=== PATIENT | male | born 1975 | race Caucasian/White ===

== ENCOUNTER 2017-10-26 13:12 | Emergency (ER) | payer BC, OTHER, SELFPAY ==
[~2017-10-26] VITALS: Ht 182.9 cm; Wt 104.3 kg
[~2017-10-26 13:12] MED LIST: ANUSOL-HC CREAM30 GM RECTAL; NKM
[2017-10-26] MEDS ORDERED: NKM (13:19)
[2017-10-26 13:33] VITALS: BP 126/81
--- NOTE | 2017-10-26 13:36 | Emergency Room Report ---
History of Present Illness General Chief Complaint: Constipation Source: Patient (BASIL PRICE D.O.) Present Illness HPI Patient presents with complaints of left lower abdominal pain Patient reports that he was at an urgent care and was told that the practitioner had palpated a mass in the colon And sent to the ER for evaluation He himself cannot feel anything when pushing on her stomach patient reports that he's been constipated for about 2 weeks He has recently returned from [place] denies any diarrhea Denies any chest pressures of breath he had some questionable fevers and chills Denies any vomiting (BASIL PRICE D.O.) Allergies: Uncoded Allergies: NKA (Allergy, 03/29/13) Patient History Past Medical History: see triage record Pertinent Family History: none Reviewed Nursing Documentation: PMH: Agreed, PSxH: Agreed (BASIL PRICE D.O.) Nursing Documentation-PMH Past Medical History: No Stated History (BASIL PRICE D.O.) Review of Systems All Other Systems: negative except mentioned in HPI (BASIL PRICE D.O.) Physical Exam Vital Signs Date Time Temp Pulse Resp B/P (MAP) Pulse Ox O2 Delivery O2 Flow Rate FiO2 10/26/17 13:15 97.5 62 18 126/81 99 Room Air Sp02 EP Interpretation: reviewed, normal General Appearance: well appearing, no apparent distress Head: normocephalic, atraumatic Eyes: bilateral eye PERRL, bilateral eye EOMI ENT: hearing grossly normal, normal pharynx, TMs + canals normal, uvula midline Neck: full range of motion, supple, no meningismus, no bony tend Respiratory: lungs clear, normal breath sounds, no rhonchi, no respiratory distress, no retraction, no accessory muscle use Cardiovascular #1: normal peripheral pulses, regular rate, rhythm, no edema, no gallop, no JVD, no murmur Gastrointestinal: normal bowel sounds, non tender, soft, no mass, no organomegaly, non-distended, no guarding, no hernia, no pulsatile mass, no rebound, other - However subjectively points to the left lower abdomen for most of the discomfort Genitourinary: no CVA tenderness Musculoskeletal: normal inspection Neurologic: oriented x3, responsive, 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 nml as tested, motor strength/ tone normal, sensory intact Psychiatric: mood/affect normal Skin: normal color, no rash, warm/dry, palpation normal Lymphatic: normal inspection, no adenopathy (BASIL PRICE D.O.) Medical Decision Making Diagnostic Impression: Primary Impression: Abnormal CT scan, colon Additional Impression: Constipation ER Course With the history exam and presentation, multiple differentials considered, including but not limited to appendicitis, gastritis, cholecystitis, diverticulitis (BASIL PRICE D.O.) ER Course I received signout 42-year-old male, intermittent left lower abdominal pain for 2 weeks Intermittent constipation, however states that he is passing some gas and stool today CAT scan reviewed by radiologist, high suspicion for colon cancer with liver metastases I informed the patient that further workup was begun, such as colonoscopy and biopsies Patient is stable for discharge to home He will follow up with GI doctor Dr. Dee this sunday at 1pm Strict return precautions discussed the patient such as high fever chills, intractable nausea and vomiting, worsening or severe abdominal pain, constipation and no passing of gas He verbalized understanding and agrees with the plan (Perico Andrews M.D.) CT/MRI/US Diagnostic Results CT/MRI/US Diagnostic Results : Imaging Test Ordered: CT abdo pelvis Impression Comparison: None Findings: There is infiltration of the pericolonic fat surrounding the distal descending colon. Numerous diverticula are seen in the area. There is some associated colonic wall thickening as well as prominent pericolonic nodes. There is also some wall thickening of the proximal sigmoid colon. No extraluminal gas demonstrated. No fluid collections demonstrated. The appendix is normal. No small bowel distention. No free or loculated intraperitoneal air or or fluid is evident. Distal esophagus, stomach, duodenum are unremarkable. A few hypoattenuating masses are seen in the liver. The largest is in segment 5 to the right hepatic lobe. This measures 8 cm AP by 5.7 cm transverse by 5.6 cm craniocaudad. Other smaller masses are seen within segment 8 and segment 7. The gallbladder, bile ducts, pancreas are unremarkable. The spleen is mildly enlarged, measuring 13.7 cm long axis dimension. The left adrenal demonstrates an 18 mm diameter mass which demonstrates nonspecific soft tissue attenuation. The right adrenal is unremarkable. The kidneys are unremarkable. Prominent lymph nodes are also seen in the right lower quadrant mesentery. Prominent but not frankly enlarged retroperitoneal nodes are demonstrated. The included lung bases are clear. The bones are unremarkable except for small bone island within the left iliac wing. Impression: Pericolonic inflammatory changes surrounding the distal descending colon. Presence of diverticulosis suggest acute diverticulitis as etiology. However, given the presence of wall thickening, pericolonic lymphadenopathy, and presence of multiple lesions within the liver, favor colonic malignancy as etiology of the findings. Further evaluation with endoscopy is recommended Multiple hepatic lesions, as described. Although possibly inflammatory/infectious, suspect more likely these represent metastatic deposits, particularly given the concomitant colonic abnormality. 18 mm left adrenal mass. Nonspecific. Although likely benign adenoma, possibility of metastatic disease cannot be ruled out. Further evaluation with adrenal protocol MRI or CT may clarify, if necessary Mild splenomegaly Findings discussed by phone with Dr. Andrews in the emergency room at the time of interpretation (Perico Andrews M.D.) Last Vital Signs Date Time Temp Pulse Resp B/P (MAP) Pulse Ox O2 Delivery O2 Flow Rate FiO2 10/26/17 13:15 97.5 62 18 126/81 99 Room Air (BASIL PRICE.Felicity) Disposition: HOME, SELF-CARE Condition: Stable Patient Instructions: Constipation, Adult Additional Instructions: Your CAT scan is highly suspicious for colon cancer with liver metastasis Please followup with delinquency prevention officer Dr Dee at 1pm on Sunday, October 29 2017 [id number] [place] [address] BASIL PRICE D.O. Oct 26, 2017 13:36 Perico Andrews M.D. Oct 26, 2017 15:36
[2017-10-26] MEDS: Ketorolac 30mg Inj IV ONE (13:58)
[2017-10-26 14:04] LABS: APPEARANCE,URINE CLEAR; KETONES,URINE NEGATIVE (NEGATIVE); LEUKOCYTE ESTERASE ,URINE 1+ (NEGATIVE); NITRITE,URINE NEGATIVE (NEGATIVE); PH,URINE 5 (4.5-8.0); PROTEIN,URINE NEGATIVE (NEGATIVE); UROBILINOGEN,URINE NORMAL MG/DL (0.0-1.0)
[2017-10-26 14:05] LABS: BASOPHILS % (AUTO) 0.6 % (0.0-2.0); EOSINOPHILS % (AUTO) 2.7 % (0.0-3.0); LYMPHOCYTES % (AUTO) 28.3 % (20.0-45.0); MEAN CORPUSCULAR HEMOGLOBIN 30.6 PG (27.0-31.0); MEAN CORPUSCULAR HGB CONC 33.4 G/DL (32.0-36.0); MEAN CORPUSCULAR VOLUME 92 FL (80-99); MEAN PLATELET VOLUME 8.2 FL (6.5-10.1); MONOCYTES % (AUTO) 7.3 % (1.0-10.0); NEUTROPHILS % (AUTO) 61.2 % (45.0-75.0); PLATELET COUNT 317 K/UL (150-450); RED BLOOD COUNT 5.14 M/UL (4.70-6.10); RED CELL DISTRIBUTION WIDTH 11.6 % (11.6-14.8); WHITE BLOOD COUNT 12.1 K/UL (4.8-10.8)
[2017-10-26 14:13] LABS: BACTERIA,URINE FEW /HPF; MUCUS,URINE FEW /LPF (NONE/OCC); SQUAMOUS EPITHELIAL CELL,UR FEW /LPF (NONE/OCC); WBC,URINE 0-2 /HPF (0 - 0)
[2017-10-26 14:18] LABS: ANION GAP 5 mmol/L (5-15); CALCIUM 10.1 MG/DL (8.5-10.1); CARBON DIOXIDE 32 MMOL/L (21-32); CHLORIDE 104 MMOL/L (98-107); GLOMERULAR FILTRATION RATE > 60 mL/min (>60); POTASSIUM 4.3 MMOL/L (3.5-5.1); SODIUM 141 MMOL/L (136-145)
[2017-10-26 14:24] LABS: ALANINE AMINOTRANSFERASE 44 U/L (12-78); ALBUMIN/GLOBULIN RATIO 0.8 (1.0-2.7); ASPARTATE AMINO TRANSFERASE 15 U/L (15-37); LIPASE 111 U/L (73-393); TOTAL PROTEIN 8.7 G/DL (6.4-8.2)
--- NOTE | 2017-10-26 15:23 | Diagnostic Imaging Report ---
Clinical Indication: Left lower quadrant abdominal pain Technique: No oral contrast utilized, per emergency room physician request IV administration nonionic contrast. Venous phase and delayed phase spiral acquisitions obtained through the abdomen and pelvis. Multiplanar reconstructions were generated. Total dose length product 1640 mGycm. CTDIvol(s) 1818 mGy. Dose reduction achieved using automated exposure control Comparison: None Findings: There is infiltration of the pericolonic fat surrounding the distal descending colon. Numerous diverticula are seen in the area. There is some associated colonic wall thickening as well as prominent pericolonic nodes. There is also some wall thickening of the proximal sigmoid colon. No extraluminal gas demonstrated. No fluid collections demonstrated. The appendix is normal. No small bowel distention. No free or loculated intraperitoneal air or or fluid is evident. Distal esophagus, stomach, duodenum are unremarkable. A few hypoattenuating masses are seen in the liver. The largest is in segment 5 to the right hepatic lobe. This measures 8 cm AP by 5.7 cm transverse by 5.6 cm craniocaudad. Other smaller masses are seen within segment 8 and segment 7. The gallbladder, bile ducts, pancreas are unremarkable. The spleen is mildly enlarged, measuring 13.7 cm long axis dimension. The left adrenal demonstrates an 18 mm diameter mass which demonstrates nonspecific soft tissue attenuation. The right adrenal is unremarkable. The kidneys are unremarkable. Prominent lymph nodes are also seen in the right lower quadrant mesentery. Prominent but not frankly enlarged retroperitoneal nodes are demonstrated. The included lung bases are clear. The bones are unremarkable except for small bone island within the left iliac wing. Impression: Pericolonic inflammatory changes surrounding the distal descending colon. Presence of diverticulosis suggest acute diverticulitis as etiology. However, given the presence of wall thickening, pericolonic lymphadenopathy, and presence of multiple lesions within the liver, favor colonic malignancy as etiology of the findings. Further evaluation with endoscopy is recommended Multiple hepatic lesions, as described. Although possibly inflammatory/infectious, suspect more likely these represent metastatic deposits, particularly given the concomitant colonic abnormality. 18 mm left adrenal mass. Nonspecific. Although likely benign adenoma, possibility of metastatic disease cannot be ruled out. Further evaluation with adrenal protocol MRI or CT may clarify, if necessary Mild splenomegaly Findings discussed by phone with Dr. Andrews in the emergency room at the time of interpretation The CT scanner at [facility] is accredited by the [employer] and the scans are performed using protocols designed to limit radiation exposure to as low as reasonably achievable to attain images of sufficient resolution adequate for diagnostic evaluation.
[2017-10-26] MEDS ORDERED: COLACE100 MG ORAL (15:41)
[2017-10-26] MEDS ORDERED: SENNA8.6 M2 PO (15:41)
[2017-10-26 15:44] VITALS: BP 128/85
[2017-11-01] MEDS ORDERED: NKM (15:42)
== END 2017-10-26 15:46 | disposition home or self-care (01) ==
LOC: EMR 13:40
DX: R93.5 Abnormal findings on diagnostic imaging of other abdominal regions, including retroperitoneum (principal); K59.00 Constipation, unspecified; K76.9 Liver disease, unspecified; E27.9 Disorder of adrenal gland, unspecified; R16.1 Splenomegaly, not elsewhere classified; K57.30 Diverticulosis of large intestine without perforation or abscess without bleeding
CPT/HCPCS: 36415; 74177; 80053; 81003; 83690; 85025; 96374; 96375; 99284; J1885; J2405; Q9967

== ENCOUNTER 2017-11-02 09:43 | Day surgery (SDC) | payer BC ==
[~2017-11-02] VITALS: Ht 182.9 cm; Wt 104.3 kg
[2017-11-02] VITALS (8 sets, daily range): BP systolic 115–152; BP diastolic 64–79
--- NOTE | 2017-11-02 06:47 | Anethesia Preoperative Eval ---
Anesthesia Pre-op PMH/ROS General Date of Evaluation: Nov 02, 2017 Time of Evaluation: 06:44 Anesthesiologist: carlos ASA Score: ASA 2 Mallampati Score Class I : Soft palate, uvula, fauces, pillars visible Class II: Soft palate, uvula, fauces visible Class III: Soft palate, base of uvula visible Class IV: Only hard plate visible Mallampati Classification: Class II Surgeon: kellen Diagnosis: colon mass Surgical Procedure: colonoscopy Anesthesia History: none Social History: current smoker Family History: no anesthesia problems Allergies: Coded Allergies: No Known Allergies (Unverified , 11/01/17) Medications: see eMAR Past Medical History Gastrointestinal/Genitourinary: Reports: other - constipation, colon mass Anesthesia Pre-op Phys. Exam Physician Exam Constitutional: NAD Neurologic: CN 2-12 intact Cardiovascular: RRR Respiratory: CTA Gastrointestinal: S/NT/ND Airway Exam Mallampati Score: Class II MO: full Neck: supple TMD: 2fb ROM: full Teeth: intact Anesthesia Pre-op A/P Risk Assessment & Plan Assessment: asa2 Plan: mac Status Change Before Surgery: No Pre-Antibiotics Drug: ELIEL Casarez Nov 02, 2017 06:47
[~2017-11-02 09:43] MED LIST changes: +COLACE100 MG ORAL; +SENNA8.6 M2 PO
--- NOTE | 2017-11-02 11:31 | Pre-Procedure Note/Attestation ---
Pre-Procedure Note/Attestation Complete Prior to Procedure Planned Procedure: not applicable Procedure Narrative: colonoscopy Indications for Procedure Pre-Operative Diagnosis: colon mass Attestation I attest that I discussed the nature of the procedure; its benefits; risks and complications; and alternatives (and the risks and benefits of such alternatives ), prior to the procedure, with the patient (or the patient's legal sales representative meats). I attest that, if there was a reasonable possibility of needing a blood transfusion, the patient (or the patient's legal sales representative meats) was given the [facility] standardized written summary, pursuant to the Home Sindhu Blood Safety Act ([place] Health and Safety Code # 1645, as amended). I attest that I re-evaluated the patient just prior to the surgery and that there has been no change in the patient's H&P, except as documented below: VESNA VERA Nov 02, 2017 11:31
--- NOTE | 2017-11-02 11:32 | Short Stay Surgery H&P ---
History of Present Illness History of Present Illness Chief Complaint colon mass HPI Kim Jain is a 42 year old male who was admitted on for Colon Mass Patient History Allergies: Coded Allergies: No Known Allergies (Unverified , 11/01/17) PAST MEDICAL HISTORY: Past Surgeries: Social History: Medication History Scheduled No Known Medications* (NKM - No Known Medications*), 0 ., (Reported) Discontinued Medications Docusate Sodium* (Colace*), 100 MG ORAL THREE TIMES A DAY Discontinued Reason: MD discontinued med Hydrocortisone (Hydrocortisone), 1 APPLIC RECTAL FOUR TIMES A DAY Discontinued Reason: MD discontinued med No Known Medications* (NKM - No Known Medications*), 0 ., (Reported) Discontinued Reason: MD discontinued med Sennosides (Senna), 8.6 MG PO DAILY Discontinued Reason: Pt stopped taking med Review of Systems Cardiovascular: Reports: no symptoms Respiratory: Reports: no symptoms Skeletal: Reports: no symptoms Gastrointestinal: Reports: no symptoms Genitourinary: Reports: no symptoms Neurologic: Reports: no symptoms Endocrine: Reports: no symptoms Hematologic: Reports: no symptoms Physical Exam Skin: normal HENT: normal Heart: normal Lungs: normal Abdomen: normal Extremities: normal Plan Plan of Care colonoscopy Final Diagnosis: Attestation Are the patient's medical conditions optimized for surgery? Attestation Response: yes VESNA VERA Nov 02, 2017 11:32
[2017-11-02] MEDS ORDERED: Propofol 200mg/20ml IV ONE (12:00)
[2017-11-02] MEDS ORDERED: Lidocaine 1% MPF 10mg/ml 5ml ONE (12:00)
--- NOTE | 2017-11-02 12:20 | Endoscopy Procedure Note ---
Endoscopy Procedure Note Indication for Procedure: colon mass Procedures Performed: colonoscopy Operative Findings/Diagnosis: diverticulosis Specimen: yes Pt Tolerated Procedure Well: Yes Estimated Blood Loss: none Anesthesiologist: marina Anesthesia: MAC Implant(s) used?: No 50 yrs or older w/o bx or poly: No 10yrs. F/U not recommended: Yes If not recommended, why?: Above average risk 10 yrs. F/U needed: Yes 18 years or older w/prev. colo: No VESNA VERA Nov 02, 2017 12:20
--- NOTE | 2017-11-02 12:59 | Immediate Post-Op Evaluation ---
Immediate Post-Op Evalulation Immediate Post-Op Evalulation Procedure: colonoscopy Date of Evaluation: Nov 02, 2017 Time of Evaluation: 12:47 IV Fluids: 150ml 0.9ns Blood Products: none Estimated Blood Loss: negligible Blood Pressure Systolic: 133 Blood Pressure Diastolic: 78 Pulse Rate: 50 Respiratory Rate: 18 O2 Sat by Pulse Oximetry: 100 Temperature (Fahrenheit): 97.6 Pain Score (1-10): 0 Nausea: No Vomiting: No Complications none Patient Status: awake, reacts, patent Hydration Status: adequate Drug: ELIEL Casarez Nov 02, 2017 12:59
[2017-11-02] MEDS ORDERED: DiphenhydrAMINE 50mg/ml Inj IVP PRN (13:00)
[2017-11-02] MEDS ORDERED: Midazolam 2mg/2ml Inj IVP PRN (13:00)
[2017-11-02] MEDS ORDERED: fentaNYL 100 mcg/2 mL IV PRN (13:00)
[2017-11-02] MEDS ORDERED: Atropine Inj 1mg/10ml Syr IV PRN (13:00)
--- NOTE | 2017-11-02 13:01 | 48 Hour Post Anesthesia Eval ---
Post Anesthesia Evaluation Procedure: colonoscopy Date of Evaluation: Nov 02, 2017 Time of Evaluation: 12:59 Blood Pressure Systolic: 128 0: 80 Pulse Rate: 54 Respiratory Rate: 18 Temperature (Fahrenheit): 97.6 O2 Sat by Pulse Oximetry: 100 Airway: patent Nausea: No Vomiting: No Pain Intensity: 0 Hydration Status: adequate Cardiopulmonary Status: stable Mental Status/LOC: patient returned to baseline Post-Anesthesia Complications: none Follow-up care needed: N/A ELIEL NEGRON Nov 02, 2017 13:00
--- NOTE | 2017-11-02 18:45 | Procedure Note ---
DATE OF PROCEDURE: 11/02/2017 PROCEDURE: Colonoscopy with biopsy. ANESTHESIA: Per Dr. Valdez. INSTRUMENT: Olympus colonoscope. INDICATION: Questionable colon mass with metastasis to the liver. The procedure, risks, benefits, and possible consequences, including hemorrhage, aspiration, perforation and infection, and alternative treatments, were explained to the patient/legal guardian by Dr. Sergio Dee and the patient/legal guardian understood and accepted these risks. DESCRIPTION OF PROCEDURE: After informed consent was obtained and the patient was adequately sedated, first rectal exam was performed, which was normal. Then, the scope was advanced from rectum into the cecum, documented by appendiceal orifice, ileocecal valve, and right upper quadrant palpation. Quality of the prep was very good. The scope was also was advanced to TI. TI looked normal. The patient had one diminutive polyp in the transverse colon, which was removed with cold biopsy forceps technique. In the area of the sigmoid, there was evidence of diverticulosis with peridiverticulitis and colitis, which was biopsied. The patient did not have any obvious colonic mass in this colonoscopy examination. Retroflexion of rectum was performed, which did not show any obvious internal hemorrhoids. SUMMARY OF FINDINGS: 1. Colonic polyp, removed. See above for details. 2. Diverticulosis with peridiverticulitis and colitis. RECOMMENDATIONS: 1. Follow biopsy results. 2. We will recommend the patient to have an endoscopy with EUS for evaluation of the stomach or pancreatic source of malignancy. We will send for tumor markers today. We will discuss with the patient and family after the patient is awake. Sergio Dee M.D. DR: Jesika JOB#: [id number] CC:
== END 2017-11-02 13:40 | disposition home or self-care (01) ==
LOC: GAS 09:43
DX: K63.5 Polyp of colon (principal); K57.32 Diverticulitis of large intestine without perforation or abscess without bleeding; K52.9 Noninfective gastroenteritis and colitis, unspecified; F17.200 Nicotine dependence, unspecified, uncomplicated
CPT/HCPCS: 45380; J2704; 94003; 94150

== ENCOUNTER 2017-11-05 08:06 | Day surgery (SDC) | payer BC ==
[2017-11-05] VITALS (10 sets, daily range): BP systolic 103–127; BP diastolic 51–78
[~2017-11-05] VITALS: Ht 182.9 cm; Wt 104.4 kg
--- NOTE | 2017-11-05 09:12 | Pre-Procedure Note/Attestation ---
Pre-Procedure Note/Attestation Complete Prior to Procedure Planned Procedure: not applicable Procedure Narrative: esophagogastroduodenoscopy /eus Indications for Procedure Pre-Operative Diagnosis: malignancy Attestation I attest that I discussed the nature of the procedure; its benefits; risks and complications; and alternatives (and the risks and benefits of such alternatives ), prior to the procedure, with the patient (or the patient's legal construction representative). I attest that, if there was a reasonable possibility of needing a blood transfusion, the patient (or the patient's legal construction representative) was given the [facility] standardized written summary, pursuant to the Home Sindhu Blood Safety Act ([place] Health and Safety Code # 1645, as amended). I attest that I re-evaluated the patient just prior to the surgery and that there has been no change in the patient's H&P, except as documented below: VESNA VERA Nov 05, 2017 09:12
--- NOTE | 2017-11-05 09:13 | Short Stay Surgery H&P ---
History of Present Illness History of Present Illness Chief Complaint see recent consult note HPI Kim Jain is a 42 year old male who was admitted on for Abdominal Mass Patient History Allergies: Coded Allergies: No Known Allergies (Unverified , 11/01/17) PAST MEDICAL HISTORY: Past Surgeries: Social History: Medication History Scheduled No Known Medications* (NKM - No Known Medications*), 0 ., (Reported) Discontinued Medications Docusate Sodium* (Colace*), 100 MG ORAL THREE TIMES A DAY Discontinued Reason: MD discontinued med Hydrocortisone (Hydrocortisone), 1 APPLIC RECTAL FOUR TIMES A DAY Discontinued Reason: MD discontinued med No Known Medications* (NKM - No Known Medications*), 0 ., (Reported) Discontinued Reason: MD discontinued med Sennosides (Senna), 8.6 MG PO DAILY Discontinued Reason: Pt stopped taking med Physical Exam Vital Signs Last Vital Signs Date Time Temp Pulse Resp B/P (MAP) Pulse Ox O2 Delivery O2 Flow Rate FiO2 11/05/17 08:50 97.1 53 18 103/75 98 Room Air Plan Attestation Are the patient's medical conditions optimized for surgery? VESNA VERA Nov 05, 2017 09:13
[2017-11-05] MEDS ORDERED: Propofol 200mg/20ml IV ONE (09:30)
[2017-11-05] MEDS ORDERED: Lidocaine 1% MPF 10mg/ml 5ml ONE (09:30)
--- NOTE | 2017-11-05 09:39 | Endoscopy Procedure Note ---
Endoscopy Procedure Note Indication for Procedure: ? metastatic DZ Procedures Performed: EGD, other - EUS Operative Findings/Diagnosis: gastritis Specimen: yes Pt Tolerated Procedure Well: Yes Estimated Blood Loss: none Anesthesiologist: marina Anesthesia: MAC Implant(s) used?: No 50 yrs or older w/o bx or poly: Not Applicable 10yrs. F/U not recommended: Not Applicable VESNA VERA Nov 05, 2017 09:39
[2017-11-05] MEDS ORDERED: Atropine Inj 1mg/10ml Syr IV PRN (10:00)
[2017-11-05] MEDS ORDERED: fentaNYL 100 mcg/2 mL IV PRN (10:00)
[2017-11-05] MEDS ORDERED: Midazolam 2mg/2ml Inj IVP PRN (10:00)
[2017-11-05] MEDS ORDERED: DiphenhydrAMINE 50mg/ml Inj IVP PRN (10:00)
[2017-11-05 10:40] LABS: AMYLASE 32 U/L (25-115); LIPASE 137 U/L (73-393)
--- NOTE | 2017-11-05 11:06 | Anethesia Preoperative Eval ---
Anesthesia Pre-op PMH/ROS General Date of Evaluation: Nov 05, 2017 Time of Evaluation: 09:28 Anesthesiologist: carlos ASA Score: ASA 2 Mallampati Score Class I : Soft palate, uvula, fauces, pillars visible Class II: Soft palate, uvula, fauces visible Class III: Soft palate, base of uvula visible Class IV: Only hard plate visible Mallampati Classification: Class II Surgeon: kellen Diagnosis: abdominal mass Surgical Procedure: egd/eus Anesthesia History: none Family History: no anesthesia problems Allergies: Coded Allergies: No Known Allergies (Unverified , 11/01/17) Medications: see eMAR Past Medical History Gastrointestinal/Genitourinary: Reports: other - constipation Anesthesia Pre-op Phys. Exam Physician Exam Last Vital Signs Date Time Temp Pulse Resp B/P (MAP) Pulse Ox O2 Delivery O2 Flow Rate FiO2 11/05/17 10:20 48 19 120/51 100 Room Air 11/05/17 10:10 3.0 11/05/17 10:01 97.0 Constitutional: NAD Neurologic: CN 2-12 intact Cardiovascular: RRR Respiratory: CTA Gastrointestinal: S/NT/ND Airway Exam Mallampati Score: Class II MO: full Neck: supple TMD: 2fb ROM: full Teeth: intact Anesthesia Pre-op A/P Labs Chemistry Test 11/05/17 10:20 Amylase Level Pending Lipase Pending Alpha Fetoprotein Pending Risk Assessment & Plan Assessment: asa2 Plan: mac Status Change Before Surgery: No Pre-Antibiotics Drug: ELIEL Casarez Nov 05, 2017 11:06
--- NOTE | 2017-11-05 11:50 | Immediate Post-Op Evaluation ---
Immediate Post-Op Evalulation Immediate Post-Op Evalulation Procedure: egd/eus Date of Evaluation: Nov 05, 2017 Time of Evaluation: 10:13 IV Fluids: 350ml 0.9ns Blood Products: none Estimated Blood Loss: negligible Blood Pressure Systolic: 109 Blood Pressure Diastolic: 65 Pulse Rate: 52 Respiratory Rate: 18 O2 Sat by Pulse Oximetry: 99 Temperature (Fahrenheit): 97.0 Pain Score (1-10): 0 Nausea: No Vomiting: No Complications none Patient Status: awake, reacts, patent Hydration Status: adequate Drug: ELIEL Casarez Nov 05, 2017 11:49
--- NOTE | 2017-11-05 11:51 | 48 Hour Post Anesthesia Eval ---
Post Anesthesia Evaluation Procedure: egd/eus Date of Evaluation: Nov 05, 2017 Time of Evaluation: 10:15 Blood Pressure Systolic: 111 0: 66 Pulse Rate: 55 Respiratory Rate: 18 Temperature (Fahrenheit): 97.0 O2 Sat by Pulse Oximetry: 99 Airway: patent Nausea: No Vomiting: No Pain Intensity: 0 Hydration Status: adequate Cardiopulmonary Status: stable Mental Status/LOC: patient returned to baseline Post-Anesthesia Complications: none Follow-up care needed: N/A ELIEL NEGRON Nov 05, 2017 11:51
--- NOTE | 2017-11-05 21:30 | Procedure Note ---
DATE OF PROCEDURE: 11/05/2017 SURGEON: Sergio Dee M.D. REFERRING PHYSICIAN: Chidi Wilson M.D. PROCEDURE: Upper endoscopy with biopsy and endoscopic ultrasound. ANESTHESIA: Per Dr. Taylor. ANESTHESIOLOGIST: Dr. Taylor. INSTRUMENT: Olympus adult flexible upper endoscope and EUS scope. INDICATION: Rule out malignancy. DESCRIPTION OF PROCEDURE: The procedure, risks, benefits, and possible consequences including hemorrhage, aspiration, perforation and infection, and alternative treatments were explained to the patient/legal guardian by Dr. Sergio Dee and the patient/legal guardian understood and accepted these risks. After informed consent was obtained and the patient was adequately sedated, Olympus upper endoscope was advanced from mouth into the second portion of duodenum and retroflexion was performed in the stomach. The patient had evidence of a small inlet patch. GE junction was found to be at about 39 cm from the incisor without any obvious esophagitis. In the stomach, there was an inflammatory-looking polyp in the peripyloric region, may be roger-erosion inflammation. This area was biopsied and placed in a vial gastric polyp. The patient also had diffuse gastritis. Random biopsy from antrum was obtained to rule out H. pylori infection. 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 At this time, the upper endoscope was retrieved. EUS radial scope was introduced and I started scanning at GE junction. We did not see any obvious lymphadenopathy. Pancreatic parenchyma did not show any obvious mass. No pancreatic duct dilatation. pancreatic duct looked small. We could not interpret findings very well. There was evidence of some fat stranding versus hypoechoic stranding in the pancreatic parenchyma in the right clinical setting that might be related to pancreatitis, although again we did not see any pancreatic duct, we did not see any pancreatic duct calcification, and there was no obvious significant lobulation of the pancreatic parenchyma. Then the scope was advanced into the duodenal bulb and second portion of the duodenum. Gallbladder was seen without any obvious mass or polyps in it. Head of the pancreas was examined. It did not show any obvious mass. Limited examination of the liver did not show any obvious lesion. At this time, the scope was retrieved and the procedure was terminated. SUMMARY OF FINDINGS: 1. Inlet patch. 2. Gastric polyps, status post biopsy. 3. Gastritis, status post biopsy. 4. Normal upper endoscopic ultrasound without any obvious findings. PLAN: 1. Follow up biopsy results. 2. We recommend MRI of the liver to find out what were those lesions seen on the CAT scan. I want to thank, Dr. Chidi Wilson, for this kind referral. Sergio Dee M.D. DR: CARRIE JOB#: [id number] CC: Chidi Wilson M.D.; Fax#: [phone]
== END 2017-11-05 11:20 | disposition home or self-care (01) ==
LOC: GAS 08:06
DX: K29.50 Unspecified chronic gastritis without bleeding (principal); K31.9 Disease of stomach and duodenum, unspecified; K22.6 Gastro-esophageal laceration-hemorrhage syndrome; K31.7 Polyp of stomach and duodenum
CPT/HCPCS: 36415; 43239; 43259; 82105; 82150; 82378; 83690; J2704; 94003; 94150